=== PATIENT | female | born 2005 | race Caucasian/White ===

== ENCOUNTER 2025-05-04 04:59 | Inpatient (IN) | payer BC ==
[~2025-05-04] VITALS: Ht 162.6 cm; Wt 98.4 kg
[2025-05-04] MEDS ORDERED: OXYTOCIN/0.9 % SODIUM CHLORIDE 30 UNITS/500 ML BAG IV SCH (05:30)
[2025-05-04] MEDS ORDERED: LACTATED RINGER'S 1,000 ML IV PRN (05:30)
[2025-05-04] MEDS ORDERED: LIDOCAINE HCL 1% 30 ML SDV INJ PRN (05:30)
[2025-05-04] MEDS ORDERED: TERBUTALINE SULFATE 1 MG/ML AMP SUB-Q PRN (05:30)
[2025-05-04] MEDS ORDERED: CALCIUM CARBONATE 500 MG CHEW PO PRN (05:30)
[2025-05-04] MEDS ORDERED: MAGNESIUM HYDROXIDE/AL HYDROX 30 ML CUP PO PRN (05:30)
[2025-05-04 05:35] LABS: MCH 29.7 PG (25.6-32.2); MCHC 33.5 g/dL (32.2-35.5); MCV 88.7 fL (79.4-94.8); RBC 3.97 M/uL (3.93-5.22)
[2025-05-04 05:55] LABS: AMPHETAMINES, URINE NEGATIVE (NEGATIVE); BARBITURATES, URINE NEGATIVE (NEGATIVE); BENZODIAZEPINE, URINE NEGATIVE (NEGATIVE); CANNABINOID, URINE NEGATIVE (NEGATIVE); COCAINE, URINE NEGATIVE (NEGATIVE); ECSTASY, URINE NEGATIVE (NEGATIVE); FENTANYL, URINE NEGATIVE (NEGATIVE); METHADONE, URINE NEGATIVE (NEGATIVE); OPIATES, URINE NEGATIVE (NEGATIVE); OXYCODONE, URINE NEGATIVE (NEGATIVE); PHENCYCLIDINE, URINE NEGATIVE (NEGATIVE)
[2025-05-04 06:00] VITALS: BP 129/75
[2025-05-04 06:14] LABS: ABO O; ANTIBODY SCREEN NEGATIVE; RH POSITIVE
[2025-05-04 09:06] LABS: MCH 29.2 PG (25.6-32.2); MCHC 32.8 g/dL (32.2-35.5); MCV 89.0 fL (79.4-94.8); RBC 3.91 M/uL (3.93-5.22)
[2025-05-04 09:17] LABS: PROTEIN, RANDOM URINE 30.0 mg/dL (NOT ESTABLISHED)
[2025-05-04 09:22] LABS: ALT (SGPT) 18.0 U/L (14-59); AST (SGOT) 16.0 U/L (15-37); GLOMERULAR FILTRATION RATE,EST 129.0 mL/min (>60); LACTATE DEHYDROGENASE 190.0 U/L (81-234); PROTEIN, TOTAL 6.4 g/dL (6.4-8.2); UREA NITROGEN 10.0 mg/dL (7-18)
[2025-05-04 09:29] LABS: ABO O; RH POSITIVE
[2025-05-04 09:32] LABS: IS CROSSMATCH COMPATIBLE
[2025-05-04] MEDS ORDERED: OXYTOCIN/0.9 % SODIUM CHLORIDE 500 ML IV SCH (12:45)
[2025-05-04] MEDS ORDERED: ROPIVACAINE 0.2% 200 ML BAG ONE (15:31)
[2025-05-04] MEDS ORDERED: fentaNYL citrate 100 MCG/2 ML VIAL ONE ×2 (15:31→23:42)
[2025-05-04] MEDS ORDERED: LACTATED RINGER'S 500 ML IV PRN (16:15)
[2025-05-04] MEDS ORDERED: ROPIVACAINE 0.2% 200 ML BAG EPIDURAL SCH (16:15)
[2025-05-04] MEDS ORDERED: ePHEDrine sulfate 5 MG/ML SYRINGE IV PRN (16:15)
[2025-05-04] MEDS ORDERED: LACTATED RINGER'S 2,000 ML IV ONE (16:15)
[2025-05-04] MEDS ORDERED: BUPIVACAINE HCL 0.25% 50 ML MDV ONE (23:42)
[2025-05-05] MEDS ORDERED: AZITHROMYCIN 500 MG in DEXTROSE 5% 250 ML IV ONE (06:30)
[2025-05-05] MEDS ORDERED: SOD+POT BICARB/CITRIC ACID 2 EA TABLET.EFF PO ONE (06:30)
[2025-05-05] MEDS ORDERED: Ropivacaine HCl 20 MG/10 ML AMP ONE (07:00)
[2025-05-05] MEDS ORDERED: CEFAZOLIN SODIUM 2 GM/20 ML SYR IV SCH (07:00)
[2025-05-05] MEDS ORDERED: OXYTOCIN 10 UNITS/ML VIAL ONE (07:15)
[2025-05-05] MEDS ORDERED: LIDOCAINE 2% W/ EPI 1:200,000 20 ML SDV ONE (07:15)
[2025-05-05] MEDS ORDERED: Ropivacaine HCl 0.5% 30 ML VIAL ONE (07:15)
[2025-05-05] MEDS ORDERED: MORPHINE SULFATE 1 MG/ML VIAL ONE (08:32)
[2025-05-05] MEDS ORDERED: LACTATED RINGER'S 1,000 ML IV SCH (08:41)
[2025-05-05] MEDS ORDERED: PROCHLORPERAZINE EDISYLATE 10 MG/2 ML VIAL IV PRN (08:45)
[2025-05-05] MEDS ORDERED: PROMETHAZINE HCL 25 MG TAB PO PRN (08:45)
[2025-05-05] MEDS ORDERED: PROMETHAZINE HCL 25 MG SUPP PR PRN (08:45)
[2025-05-05] MEDS ORDERED: OXYTOCIN/0.9 % SODIUM CHLORIDE 500 ML IV SCH (08:45)
[2025-05-05] MEDS ORDERED: METOCLOPRAMIDE HCL 10 MG/2 ML SDV IV PRN (08:45)
[2025-05-05] MEDS ORDERED: HYDROCODONE/ACETA 5/325 TAB PO PRN (08:45)
[2025-05-05] MEDS ORDERED: OXYCODONE HCL 5 MG TAB PO PRN (08:45)
[2025-05-05] MEDS ORDERED: SENNOSIDES/DOCUSATE 1 EA TAB PO SCH (09:00)
[2025-05-05 09:33] LABS: MCH 29.0 PG (25.6-32.2); MCHC 32.1 g/dL (32.2-35.5); MCV 90.4 fL (79.4-94.8); RBC 3.45 M/uL (3.93-5.22)
[2025-05-05] MEDS ORDERED: TRANEXAMIC ACID IN NACL,ISO-OS 100 ML IV ONE (09:39)
[2025-05-05 09:43] LABS: INR 1.07 (0.80-1.30); PROTIME 13.5 Sec (11.2-14.2)
[2025-05-05] MEDS ORDERED: TRANEXAMIC ACID IN NACL,ISO-OS 1,000 MG/100 ML PIGGYBACK IV ONE (09:45)
[2025-05-05 10:32] VITALS: BP 91/50
[2025-05-05] MEDS ORDERED: SIMETHICONE 80 MG CHEW PO SCH (11:00)
--- NOTE | 2025-05-05 11:13 | NUR ---
05/05/25 Catherine3 Karl Servindenise 0840-PT ARRIVED BACK TO [facility] ROOM 105 VIA BED. PT NOTED TO BE RESTING WITH EYES CLOSED BUT AROUSE EASILY TO VERBAL STIMULI. IV SITE ASSESSED, PATENT, AND INFUSING LR PER ORDERS. DRSG CDI. FUNDAL CHECK COMPLETED. KY PAD WITH SMALL AMT OF RUBRA LOCHIA NOTED WITH FUNDAL CHECK. DRSG TO ABD IS CDI. PT DENIES PAIN. SPINAL LEVEL T8. VERBAL ORDER RECEIVED FROM DR. MCGUIRE FOR PT TO HAVE 800MCG OF MISOPROSTOL [place] ONCE. ORDER ENTERED INTO EMAR. MED PULLED FROM HEMORRHAGE KIT. 0845-SATS STABLE ON RA AT 92% OR GREATER. 2ND FUNDAL CHECK COMPLETED. PT RESPONSIVE TO VERBAL STIMULI AND CONTINUES TO DENY NAUSEA OR DISCOMFORT. PT REPORTS "I'M JUST TIRED". 0850-PT AWAKE ON AND OFF. PT ASKING WHERE BABY IS. PT INFORMED HER BABY WAS IN THE NURSERY GETTING A LITTLE EXTRA SUPPORT WITH BREATHING. PT VERBALIZED UNDERSTANDING. 0855-[facility] NURSE LYNDA INTO PTS ROOM AND INFORMED PT TO RECEIVE MISOPROSTOL [place]. [facility] GATHERED LUBRICANT FOR ADMINISTRATION. THIS RN ASSISTED WITH ROLLING PT WHILE [facility] RN ADMINISTERED MEDICATION [place]. CHUCKS PADS ALSO CHANGED OUT MODERATE AMT OF BLEEDING NOTED WITH ROLLING, HOWEVER KY-PADS IN PLACE ONLY WITH SMALL AMT OF BLEEDING NOTED. BLEEDING LIKELY OCCURED WITH TRANSFER FROM OR TABLE TO BED PRIOR TO PLACEMENT OF KY-PADS. CHUCKS WEIGHED AND W/ESTIMATED 90ML OF BLOOD LOSS. BP'S HAVE BEEN STABLE IN THE 90'S/50'S RANGES. FLUIDS OPENED UP AND INFUSING. 09-[facility] RN READY FOR REPORT. REPORT GIVEN. ALL QUESTIONS ANSWERED. ANESTHESIA ARRIVED DURING REPORT AND THIS RN NOTIFIED OF CONT SOFT BP'S. HE REPORTS HE WILL ADMINISTER SOME EPHEDRINE BEFORE BLOCKING PT. [facility] RN LYNDA IN ROOM AND AWARE. SPOKE WITH [facility] RN IF SHE WOULD LIKE THIS RN TO ASSIST ANESTHESIA W/BLOCKS AND SHE REPLIED "YES". 904-IN ROOM ASSISTING ANESTHESIA WITH TAP BLOCKS. [facility] RN ALSO IN ROOM. 914-TAP BLOCKS COMPLETED. PTS BP NOTED TO IMPROVE TO 99/57. [facility] RN DENIES ANY FURTHER NEEDS FROM THIS RN.
[2025-05-05] MEDS ORDERED: IBUPROFEN 600 MG TAB PO SCH (12:00)
[2025-05-05] MEDS ORDERED: ACETAMINOPHEN 325 MG TAB PO PRN (19:45)
[2025-05-06] MEDS ORDERED: IBUPROFEN 600 MG TAB PO SCH (02:00)
--- NOTE | 2025-05-06 08:39 | OR ---
[address] [address] Signed DATE OF OPERATION: 05/05/2025 SURGEON: Gisele Carreon MD PREOPERATIVE DIAGNOSES: 1. Intrauterine at 39 and 6/7th weeks. 2. Arrest of 1st stage of labor. POSTOPERATIVE DIAGNOSES: 1. Intrauterine at 39 and 6/7th weeks. 2. Arrest of 1st stage of labor. PROCEDURE: Primary low-transverse section. FINDINGS: Clear amniotic fluid, fetus in vertex presentation. Significant . Viable female , Apgars of 8 and 9, weight of 4250 g or 9 pounds 6 ounces. Normal uterus, ovaries, and fallopian tubes. ANESTHESIA: Epidural. RN WOUND CARE: None. IV FLUIDS: 600 mL crystalloid. QBL: 938 mL. URINE OUTPUT: 250 mL of clear urine. DRAINS: Tanner to gravity. SPECIMENS: None. Electronically Signed By: GISELE CARREON MD 05/06/25 0839 PATIENT NAME: BANDAR PEDRO OPERATIVE REPORT DATE OF : 03 REPORT #: [id number] PHYSICIAN: GISELE CARREON MD PCP: NO PRIMARY CARE PHYSICIAN REPORT IS CONFIDENTIAL AND NOT TO BE RELEASED WITHOUT AUTHORIZATION [address] [address] Signed COUNTS: Correct x2. COMPLICATIONS: None apparent. TECHNIQUE IN DETAIL: With informed consent, the patient was taken to the operating room. She was given intravenous Ancef 2 g as well as intravenous azithromycin 500 mg. Lower extremities were placed in SCD pneumatic compression devices for DVT prophylaxis. Her epidural was bolused. She was prepped and draped in sterile fashion. Prep included vaginal prep. Time-out was performed per protocol. Her analgesia was assessed and found to be sufficient. At this point, approximately 7 inch Pfannenstiel skin incision was made and sharp dissection was carried down to the layer of the rectus fascia. The fascia was nicked in the midline and the fascial incision was carried out bilaterally with sharp dissection. The rectus muscles were then taken down from the fascia using combination of sharp and blunt dissection and done both superiorly and inferiorly. The rectus muscles were in the midline at the most superior aspect. The peritoneal opening was made after elevating the perineum with hemostats and incising carefully with Metzenbaum scissors. The peritoneal opening was then enlarged with combination of sharp followed by blunt dissection. A bladder blade was placed. The position of the uterus was assessed. Location of the bladder was identified. Using a scalpel, a low transverse uterine incision was made. Sharp dissection was carried down to the superficial layers of the myometrium, which were then punctured with surgeon's finger. Clear amniotic fluid escaped. The uterine incision was then enlarged using blunt dissection in a superior to inferior direction. The surgeon's hand was placed into the lower uterine segment. The head was carefully elevated and then delivered with fundal pressure. There was no nuchal cord. Shoulders delivered with fundal pressure and gentle traction under the axilla. Cord was clamped x2 and cut and baby was handed to the resuscitation team present for transition. The placenta delivered intact with a three-vessel cord and approximately 1 minute. The uterus was externalized and the uterine cavity was thoroughly curetted with laparotomy sponges. Allis clamps were placed on the lower uterine segment. There was a slight extension of the right aspect of the hysterotomy site. The uterine incision was then closed with 0 Monocryl in a running locked fashion. Second imbricating layer of 0 Monocryl was also placed and good hemostasis was obtained. The posterior cul-de-sac was cleared of all blood and clot with gentle suction. Uterine Electronically Signed By: GISELE CARREON MD 05/06/25 0839 PATIENT NAME: BANDAR PEDRO OPERATIVE REPORT DATE OF : 03 REPORT #: [id number] PHYSICIAN: GISELE CARREON MD PCP: NO PRIMARY CARE PHYSICIAN REPORT IS CONFIDENTIAL AND NOT TO BE RELEASED WITHOUT AUTHORIZATION [facility] [address] [place], [place] [address] Signed incision was inspected and again found to be hemostatic. The uterus was returned to the pelvis. The left and right paracolic gutters were cleared of all blood and clot with moist laparotomy sponges. The uterine incision and bladder flap were inspected one final time and again good hemostasis was noted. The rectus muscles and peritoneum were reapproximated using 2-0 chromic in a running fashion. The rectus muscle bellies were inspected and found to be hemostatic. The rectus fascia was reapproximated using 0 Vicryl in a running fashion. Superficial incision was irrigated and rendered hemostatic with the electrocautery device. The subcutaneous tissue was reapproximated using 2-0 chromic in a running fashion. The skin was reapproximated using Insorb stapler device. The skin was glued with Dermabond and a bandage was placed over the wound. The uterus was then expressed of all clots. DISPOSITION: The patient was taken to the recovery room in stable condition. MD NILSON Rehman/MODL /[id number] Copies: ~ Electronically Signed By: GISELE CARREON MD 05/06/25 0839 PATIENT NAME: BANDAR PEDRO OPERATIVE REPORT DATE OF : 03 REPORT #: [id number] PHYSICIAN: GISELE CARREON MD PCP: NO PRIMARY CARE PHYSICIAN REPORT IS CONFIDENTIAL AND NOT TO BE RELEASED WITHOUT AUTHORIZATION
== END 2025-05-07 15:10 | disposition home or self-care (01) | DRG 788 ==
LOC: FBC 04:59
PROVIDERS: ADMIT Obstetrics & Gynecology; ATTEND Obstetrics & Gynecology
PROC: 10D00Z1 Extraction of Products of Conception, Low, Open Approach (ICD-10-PCS; principal; 2025-05-05 07:19)
DX: O62.1 Secondary uterine inertia (principal); Z3A.39 39 weeks gestation of pregnancy; Z37.0 Single live birth; Z87.891 Personal history of nicotine dependence
CPT/HCPCS: 36415; 76942; 80053; 80307; 82565; 82570; 83615; 84156; 84550; 85027; 85060; 85384; 85610; 85730; 86850; 86900; 86901; 86922; A9270; J2274; J2405; J2590; J2795; J3010; J7121